=== PATIENT | female | born 1955 | race Caucasian/White ===

== ENCOUNTER 2016-09-10 06:22 | Day surgery (SDC) | payer BC ==
--- NOTE | ~2016-09-10 | EGD ---
EGD REPORT [facility] [address] [address] NAME: KATHY ARIAS : [birth year] STATUS : REG [facility]#: [id number] AGE: 60 ADM/REG DATE : 09/10/16 MR#: [id number] REPORT SERV DATE: 09/10/16 DICTATED BY: DALE PURVIS DATE: 09/10/16 REPORT STATUS : Draft TRANSCRIBED BY: [facility] DATE: 09/10/16 Endoscopy Center Patient Name: Kathy Arias Date of : 1955 Attending MD: DALE PURVIS MD Procedure Date No Time: 09/10/2016 Procedure: Upper GI endoscopy Indications: Gastro-esophageal reflux disease Referring MD: Prema Khalil Medicines: See the Anesthesia note for documentation of the administered medications Complications: No immediate complications. Procedure: Pre-Anesthesia Assessment: - ASA Grade Assessment: III - A patient with severe systemic disease. After obtaining informed consent, the endoscope was passed under direct vision. Throughout the procedure, the patient's blood pressure, pulse, and oxygen saturations were monitored continuously. The GIF H190 [id number] was introduced through the mouth, and advanced to the second part of duodenum. The upper GI endoscopy was accomplished without difficulty. The patient tolerated the procedure well. Findings: The examined duodenum was normal. Mild inflammation was found in the gastric antrum. Biopsies were taken with a cold forceps for histology. The cardia and gastric fundus were normal on retroflexion. A 2 cm hiatus hernia was present. Impression: - Normal examined duodenum. - Gastritis. Biopsied. - Hiatus hernia. Recommendation: - Patient has a contact number available for emergencies. The signs and symptoms of potential delayed complications were discussed with the patient. Return to normal activities tomorrow. Written discharge instructions were provided to the patient. - Regular diet. - Continue present medications. - FOR YOUR BIOPSY RESULTS: Please go to [email or web address] and register to receive your results via the portal. Your biopsy results will be EGD REPORT [address] [address] NAME: KATHY ARIAS : [birth year] STATUS : REG [facility] [place] PAT#: [id number] AGE: 60 ADM/REG DATE : 09/10/16 MR#: [id number] REPORT SERV DATE: 09/10/16 DICTATED BY: DALE PURVIS DATE: 09/10/16 REPORT STATUS : Draft TRANSCRIBED BY: [employer] DATE: 09/10/16 posted there in about 7 to 10 days. IF you do not see result in 10 days, call office. Procedure Code(s): --- Professional --- 57197, Esophagogastroduodenoscopy, flexible, transoral; with biopsy, single or multiple Diagnosis Code(s): --- Professional --- K29.70, Gastritis, unspecified, without bleeding K44.9, Diaphragmatic hernia without obstruction or gangrene K21.9, Gastro-esophageal reflux disease without esophagitis CPT copyright 2013 [employer]. All rights reserved. The codes documented in this report are preliminary and upon elementary science teacher review may be revised to meet current compliance requirements. Dale Purvis MD DALE PURVIS MD 09/10/2016 8:09 AM This report has been signed electronically. Number of Addenda: 0 Note Initiated On: 09/10/2016 7:56 AM Scope Withdrawal Time 0 hours 0 minutes 0 seconds
--- NOTE | ~2016-09-10 | EGD ---
EGD REPORT [facility] [address] [address] NAME: KATHY ARIAS : [birth year] STATUS : REG [facility]#: [id number] AGE: 60 ADM/REG DATE : 09/10/16 MR#: [id number] REPORT SERV DATE: 09/10/16 DICTATED BY: DALE PURVIS DATE: 09/10/16 REPORT STATUS : Draft [facility]ANS[facility]IBED [facility]: [facility] DATE: 09/10/16 Endoscopy Center Patient Name: Kathy Arias Date of : 1955 Attending MD: DALE PURVIS MD Procedure Date No Time: 09/10/2016 Procedure: Colonoscopy Indications: High risk colon cancer surveillance: Personal history of colonic polyps, Last colonoscopy: 2013 Referring MD: Prema Khalil Medicines: See the Anesthesia note for documentation of the administered medications Complications: No immediate complications. Procedure: Pre-Anesthesia Assessment: - ASA Grade Assessment: III - A patient with severe systemic disease. After I obtained informed consent, the scope was passed under direct vision. Throughout the procedure, the patient's blood pressure, pulse, and oxygen saturations were monitored continuously. The PCF [id number] was introduced through the anus and advanced to the terminal ileum, with identification of the appendiceal orifice and IC valve. The colonoscopy was performed without difficulty. The patient tolerated the procedure well. The quality of the bowel preparation was adequate. Findings: The perianal and digital rectal examinations were normal. Diverticula were found in the entire colon. Internal hemorrhoids were found during retroflexion and were small. A sessile polyp was found in the cecum. The polyp was 10 mm in size. The polyp was removed with a hot snare. Resection and retrieval were complete. A sessile polyp was found in the ascending colon. The polyp was small in size. The polyp was removed with a cold biopsy forceps. Resection and retrieval were complete. A sessile polyp was found in the rectum. The polyp was small in size. The polyp was removed with a cold biopsy forceps. Resection and retrieval were complete. Impression: - Diverticulosis in the entire examined colon. - Internal hemorrhoids. - One 10 mm polyp in the cecum. Resected and retrieved. - One small polyp in the ascending colon. Resected and retrieved. EGD REPORT [address] [address] NAME: KATHY ARIAS : [birth year] STATUS : REG [facility]#: [id number] AGE: 60 ADM/REG DATE : 09/10/16 MR#: [id number] REPORT SERV DATE: 09/10/16 DICTATED BY: DALE PURVIS DATE: 09/10/16 REPORT STATUS : Draft TRANSCRIBED BY: [employer] DATE: 09/10/16 - One small polyp in the rectum. Resected and retrieved. Recommendation: - Patient has a contact number available for emergencies. The signs and symptoms of potential delayed complications were discussed with the patient. Return to normal activities tomorrow. Written discharge instructions were provided to the patient. - Regular diet. - Continue present medications. - Repeat colonoscopy in 3 years for surveillance. - FOR YOUR BIOPSY RESULTS: Please go to [email or web address] and register to receive your results via the portal. Your biopsy results will be posted there in about 7 to 10 days. IF you do not see result in 10 days, call office. - Return to my office in 2 months. Procedure Code(s): --- Professional --- 20485, Colonoscopy, flexible, proximal to splenic flexure; with removal of tumor(s), polyp(s), or other lesion(s) by snare technique 61472, 59, Colonoscopy, flexible, proximal to splenic flexure; with biopsy, single or multiple Diagnosis Code(s): --- Professional --- K64.8, Other hemorrhoids K57.30, Diverticulosis of large intestine without perforation or abscess without bleeding K62.1, Rectal polyp D12.2, Benign neoplasm of ascending colon D12.0, Benign neoplasm of cecum Z86.010, Personal history of colonic polyps CPT copyright 2013 [employer]. All rights reserved. The codes documented in this report are preliminary and upon assurance assistant review may be revised to meet current compliance requirements. Dale Purvis MD DALE PURVIS MD 09/10/2016 8:36 AM This report has been signed electronically. Number of Addenda: 0 Note Initiated On: 09/10/2016 8:09 AM EGD REPORT [facility] [address] [address] NAME: KATHY ARIAS : [birth year] STATUS : REG [facility] PAT#: [id number] AGE: 60 ADM/REG DATE : 09/10/16 MR#: [id number] REPORT SERV DATE: 09/10/16 DICTATED BY: DALE PURVIS DATE: 09/10/16 REPORT STATUS : Draft TRANSCRIBED BY: [facility] DATE: 09/10/16 Scope Withdrawal Time 0 hours 17 minutes 23 seconds [address] [id number]
[~2016-09-10 06:22] MED LIST: ASAB PO; CARTIA XT180 MG/24 PO; EFFEX37.5 PO; LEVSINTAB PO; LIPITOR20 PO; MAX25 PO; NORCO1 TA2 PO; NTG150 SL; PREV30 PO; RELA5 PO; VITAMIN D31000 UNIT PO; VITC500 PO; ZANTAC 75 PO
== END 2016-09-10 23:59 | disposition home or self-care (01) ==
LOC: DMU 06:22
PROVIDERS: Internal Medicine Gastroenterology
PROC: 0DB68ZX Excision of Stomach, Via Natural or Artificial Opening Endoscopic, Diagnostic (ICD-10-PCS; 2016-09-10)
PROC: 0DBH8ZZ Excision of Cecum, Via Natural or Artificial Opening Endoscopic (ICD-10-PCS; principal; 2016-09-10 08:00)
PROC: 0DBP8ZZ Excision of Rectum, Via Natural or Artificial Opening Endoscopic (ICD-10-PCS; 2016-09-10 08:00)
PROC: 0DBK8ZZ Excision of Ascending Colon, Via Natural or Artificial Opening Endoscopic (ICD-10-PCS; 2016-09-10 08:00)
DX: Z12.11 Encounter for screening for malignant neoplasm of colon (principal); D12.0 Benign neoplasm of cecum; K63.5 Polyp of colon; K62.1 Rectal polyp; K29.70 Gastritis, unspecified, without bleeding; K44.9 Diaphragmatic hernia without obstruction or gangrene; K21.9 Gastro-esophageal reflux disease without esophagitis; Z86.010 Personal history of colon polyps; Z79.899 Other long term (current) drug therapy; Z79.82 Long term (current) use of aspirin; Z79.891 Long term (current) use of opiate analgesic
CPT/HCPCS: 88305

== ENCOUNTER 2016-09-13 12:23 | Observation (INO) | payer BC ==
--- NOTE | ~2016-09-13 | CN ---
Consultation Report [facility] [address] [place]. [address] NAME: FELA ARIAS : [birth year] STATUS : ADM Pat PAT#: [id number] AGE: 60 ADM/REG DATE : 09/13/16 MR#: [id number] REPORT SERV DATE: 09/13/16 DICTATED BY: HARSHA GONSALES DATE: 09/13/16 REPORT STATUS : Draft TRANSCRIBED BY: MODL DATE: 09/13/16 GI CONSULTATION DATE OF CONSULTATION: 09/13/2016 REFERRING PHYSICIAN: Conrad Morin Jr, MD REASON FOR CONSULTATION: Lower GI bleed. HISTORY OF PRESENT ILLNESS: Ms. Arias is a pleasant 60-year-old lady, who had a colonoscopy by Dr. Gonzales Purvis, on (today is Wednesday), she did fine since her procedure, however, this morning she called me and informed me that she had a huge bloody bowel movement. On talking to her now while in the hospital, she says that was the only bloody bowel movement she has had and no more. The cecal polyp was removed by snare polypectomy. There is no weakness, dizziness, no nausea or vomiting. She does complain of some epigastric discomfort. HOME MEDICATIONS: Vitamin C, aspirin, Lipitor, vitamin D3, Cardizem, hydrocodone, Prevacid, Maxzide, and Effexor. ALLERGIES: NONE. HABITS: She does not smoke or drink. PHYSICAL EXAMINATION: GENERAL: She is a fully alert and oriented lady, in no distress at this point. VITAL SIGNS: With stable vital signs. LUNGS: Reveal good air entry bilaterally. No rales or rhonchi. CVS: Reveals normal S1 and S2. No gallop, rub, or murmur. CANDY DIPPER HAND: Normal. ABDOMEN: Soft, nondistended, and nontender. No mass, guarding, rigidity, or rebound. Liver and spleen are not palpable. Clinically there is no ascites. EXTREMITIES: Without edema. LABORATORY DATA: Labs have all been reviewed and hemoglobin is 11.5, when last checked on 04/27/2016 it was 13.8. White count is 12.8. Her chemistry panel is normal except glucose of 128. IMPRESSION: Most likely post polypectomy bleed. RECOMMENDATIONS: I discussed with the patient. We will prep with GoLYTELY and may need a colonoscopy depending how she does over the night. Consultation Report [facility] [address] [address] NAME: FELA ARIAS : [birth year] STATUS : ADM Pat PAT#: [id number] AGE: 60 ADM/REG DATE : 09/13/16 MR#: [id number] REPORT SERV DATE: 09/13/16 DICTATED BY: HARSHA GONSALES DATE: 09/13/16 REPORT STATUS : Draft TRANSCRIBED BY: CAYLA DATE: 09/13/16 CERTIFIED ACTIVITIES DIRECTOR/CAYLA Juancho Gonsales M.D. / [id number] CC: Conrad Morin Jr, MD Donald Hetzel, M.D.
--- NOTE | ~2016-09-13 | HP ---
History And Physical [address] [place]. [address] NAME: FELA ARIAS : [birth year] STATUS : ADM Pat PAT#: [id number] AGE: 60 ADM/REG DATE : 09/13/16 MR#: [id number] REPORT SERV DATE: 09/13/16 DICTATED BY: SERA CHENG DATE: 09/13/16 REPORT STATUS : Draft TRANSCRIBED BY: MODL DATE: 09/13/16 DATE OF ADMISSION: 09/13/2016 CHIEF COMPLAINT: Bleeding this morning. HISTORY OF PRESENT ILLNESS: This is a 60-year-old, female patient who gets every three years colonoscopy due to polyps. Had a colonoscopy last , two days ago. This morning, she started having bright-red bleeding about a cup size of amount. Therefore, the patient came to the hospital to get further evaluation. After the initial evaluation, she was found to have post polypectomy bleeding and admission was advised. She does not have any syncope or palpitation. No chest pain. Not short of breath. She is eating and ambulating without any problems. Bleeding has not come back yet. However, she complains about acute on chronic epigastric tenderness. She said she has had this kind of tenderness all the time for a long time. All other health status has been very stable. There is no new admission, hospitalization, surgeries, or any acute illness. REVIEW OF SYSTEMS: All systems reviewed and negative. PAST MEDICAL HISTORY: 1. Hypertension. 2. Depression. PAST SURGICAL HISTORY: 1. Hysterectomy. 2. Cholecystectomy. 3. Neck fusion. ALLERGIES: NO KNOWN DRUG ALLERGIES. SOCIAL HISTORY: Quit smoking in 2001, but used to smoke one pack a day for 13 years. Occasional drinking. Does not work. She lives with her and daughter. MEDICATIONS: 1. Vitamin C once a day. 2. Aspirin 81 mg once a day, but she has not taken aspirin for two weeks due to the procedure. 3. Lipitor 10 mg once at nighttime. 4. Vitamin D3 once a day. 5. Diltiazem CD 360 mg once a day. 6. Argenta 7.5/325 half a tablet twice a day as needed. 7. Prevacid 30 mg twice a day. History And Physical [address] [place]. [address] NAME: FELA ARIAS : [birth year] STATUS : ADM Pat PAT#: [id number] AGE: 60 ADM/REG DATE : 09/13/16 MR#: [id number] REPORT SERV DATE: 09/13/16 DICTATED BY: SERA CHENG DATE: 09/13/16 REPORT STATUS : Draft TRANSCRIBED BY: MODL DATE: 09/13/16 8. Maxzide hydrochlorothiazide 37.5/25 once a day. 9. Effexor 37.5 mg twice a day. FAMILY HISTORY: Patient's family has polyps. PHYSICAL EXAMINATION: VITAL SIGNS: Blood pressure is 165/83, pulse is 79, temperature 98.6, O2 sat is 97% on room air, respiratory rate 18. GENERAL APPEARANCE: She is alert, awake, not in acute distress. HEENT: Conjunctivae not anemic. NECK: There is no jugular venous distention. No nodes palpable. No carotid audible bruits. CHEST: Clear to auscultation bilaterally. Has no respiratory distress or rhonchi. CARDIOVASCULAR: Regular rhythm and rate. Not having any murmur, rub, or gallop. ABDOMEN: Bowel sounds are present. Soft. There is no rebound tenderness. No organomegaly appreciated. There is a slight tenderness in epigastric area. EXTREMITIES: There is no pedal edema. Pulses are intact. LABORATORY: Showed a sodium 139, potassium 4.1, BUN 13, creatinine 0.72. WBC of 12.8, hemoglobin 11.5, hematocrit is 33.9, platelets 257. Chest x-ray of the abdomen was not showing any acute abnormalities. Electrocardiogram showed normal sinus rhythm. ASSESSMENT/PLAN: 1. Post polypectomy bleed. 2. Hypertension, stable. 3. Depression, stable. 4. Patient will be admitted to the hospital observation status. We will do contact to Dr. Purvis and associate. She may need a repeat colonoscopy. We will watch for her bleeding and blood count. EKL/MODL Sera Cheng M.D. / [id number] CC: Conrad Morin Jr, MD Mary L. McKenzie, DO
--- NOTE | ~2016-09-13 | EGD ---
EGD REPORT [facility] [address] [address] NAME: KATHY ARIAS : 59 STATUS : ADM Pat PAT#: [id number] AGE: 60 ADM/REG DATE : 09/13/16 MR#: [id number] REPORT SERV DATE: 09/14/16 DICTATED BY: CONRAD LOMELI DATE: 09/14/16 REPORT STATUS : Draft TRANSCRIBED BY: [facility] DATE: 09/14/16 Endoscopy Center Patient Name: Kathy Arias Date of : 1955 Attending MD: CONRAD LOMELI MD Procedure Date No Time: 09/14/2016 Procedure: Colonoscopy Indications: Hematochezia Referring MD: DALE GOODEN MD, Prema Khalil Medicines: Monitored Anesthesia Care Complications: No immediate complications. Estimated blood loss: Minimal. Procedure: After I obtained informed consent, the scope was passed under direct vision. Throughout the procedure, the patient's blood pressure, pulse, and oxygen saturations were monitored continuously. The CF [id number] was introduced through the anus and advanced to the cecum, identified by appendiceal orifice and ileocecal valve. The colonoscopy was performed without difficulty. The patient tolerated the procedure well. The quality of the bowel preparation was good. Findings: The perianal and digital rectal examinations were normal. Pertinent negatives include no palpable rectal lesions. A single (solitary) ten mm ulcer was found in the cecum. No bleeding was present. Stigmata of recent bleeding were present. One hemostatic clip was successfully placed. There was no bleeding during, and at the end, of the procedure. Estimated blood loss was minimal. A single (solitary) six mm ulcer was found in the ascending colon. No bleeding was present. No stigmata of recent bleeding were seen. A single (solitary) four mm ulcer was found in the proximal rectum. No bleeding was present. No stigmata of recent bleeding were seen. Many medium-mouthed diverticula were found in the sigmoid colon. The exam was otherwise without abnormality. Impression: - A single (solitary) ulcer in the cecum. Clip was placed. - A single (solitary) ulcer in the ascending colon. - A single (solitary) ulcer in the proximal rectum. - Diverticulosis in the sigmoid colon. - The examination was otherwise normal. Recommendation: - Discharge patient to home (ambulatory). - Full liquid diet today. EGD REPORT [address] [address] NAME: KATHY ARIAS : [birth year] STATUS : ADM Pat PAT#: [id number] AGE: 60 ADM/REG DATE : 09/13/16 MR#: [id number] REPORT SERV DATE: 09/14/16 DICTATED BY: CONRAD LOMELI DATE: 09/14/16 REPORT STATUS : Draft TRANSCRIBED BY: [employer] DATE: 09/14/16 - Return to GI clinic PRN. Procedure Code(s): --- Professional --- 83108, Colonoscopy, flexible, proximal to splenic flexure; with control of bleeding (eg, injection, bipolar cautery, unipolar cautery, laser, heater probe, stapler, plasma lead based paint technician) Diagnosis Code(s): --- Professional --- K63.3, Ulcer of intestine K62.6, Ulcer of anus and rectum K57.30, Diverticulosis of large intestine without perforation or abscess without bleeding K92.1, Melena CPT copyright 2013 [employer]. All rights reserved. The codes documented in this report are preliminary and upon quoter review may be revised to meet current compliance requirements. Conrad Lomeli MD CONRAD LOMELI MD 09/14/2016 11:35 AM This report has been signed electronically. Number of Addenda: 0 Note Initiated On: 09/14/2016 10:47 AM Scope Withdrawal Time 0 hours 8 minutes 23 seconds [id number] [id number]
--- NOTE | ~2016-09-13 | DS ---
Discharge Summary [place] [id number] [facility] [place]. [id number] NAME: FELA ARIAS : 59 STATUS : DIS Pat PAT#: [id number] AGE: 60 ADM/REG DATE : 09/13/16 MR#: [id number] REPORT SERV DATE: 09/15/16 DICTATED BY: SERA CHENG DATE: 09/14/16 REPORT STATUS : Draft TRANSCRIBED BY: MODL DATE: 09/14/16 ADMISSION DATE: 09/13/2016 DISCHARGE DATE: 09/14/2016 DISCHARGE DIAGNOSES: 1. Postpolypectomy bleed, stabilized, improved, status post colonoscopy showed ulcer in the cecum, which was clipped and ascending colon, and rectum, and also diverticulosis without bleeding. 2. Hypertension, stable. CONSULTANTS: Dr. Hayden. HISTORY OF PRESENT ILLNESS: This is a 60-year-old female patient, who came to the hospital with a postpolypectomy bleed. Please see dictated H and P. HOSPITAL COURSE: She was admitted to hospital for 24-hour observation, seen by Dr. Gonsales, and decided to repeat a colonoscopy. Had a colonoscopy this morning. Had one clipped treatment and improved and stabilized. Did not drop any blood count, did not require any transfusion. Remained in stable condition. Maximized hospital care. Will be discharged home with current home medications. DISCHARGE MEDICATIONS: Same as home medication. EKL/MODL Sera Cheng M.D. / [id number] CC: Leonel Barnes DO
[2016-09-13 12:50] LABS: BASOPHILS 0.5 %; BASOPHILS ABSOLUTE 0.06 10/3/uL (0.0-0.16); EOSINOPHILS 0.9 %; EOSINOPHILS ABSOLUTE 0.11 10/3/uL (0.0-0.53); HEMOGLOBIN 11.5 g/dL (12.0-16.0); IMMATURE GRANULOCYTES 0.3 %; IMMATURE GRANULOCYTES ABSOLUTE 0.04 10/3/uL (0.0-0.11); LYMPHOCYTES 10.9 %; LYMPHOCYTES ABSOLUTE 1.39 10/3/uL (0.67-4.30); MEAN CORPUS HGB CONC 33.9 g/dL (32.0-36.0); MEAN CORPUSCULAR HEMOGLOB 28.2 pg (26.0-34.0); MEAN CORPUSCULAR VOLUME 83.1 fL (80-100); MEAN PLATELET VOLUME 10.4 fL (9.2-13.0); MONOCYTES 8.5 %; MONOCYTES ABSOLUTE 1.08 10/3/uL (0.21-1.20); NEUTROPHILS 78.9 %; NEUTROPHILS ABSOLUTE 10.07 10/3/uL (2.02-8.40); PLATELET COUNT 257 10/3/uL (150-400); RED CELL COUNT 4.08 10/6/uL (4.0-5.6); WHITE BLOOD CELLS 12.8 10/3/uL (4.5-10.5)
[2016-09-13 12:52] LABS: HEMATOCRIT 33.9 % (36.0-48.0); MANUAL DIFF NO %
[2016-09-13 13:08] LABS: A/G RATIO 1.1 (0.7-1.9); ALBUMIN 3.6 G/DL (3.5-5.0); ALKALINE PHOSPHATASE 56 U/L (45-117); BUN (BLOOD UREA NITROGEN) 13 MG/DL (6-23); CALCIUM, SERUM 8.8 MG/DL (8.5-10.4); CHLORIDE, SERUM 103 MMOL/L (96-112); CO2 (CARBON DIOXIDE) 25 MMOL/L (24-34); CREATININE 0.73 MG/DL (0.55-1.02); GFR AFRICAN AMERICAN 105 ML/MIN (>=60); GFR NON AFRICAN AMERICAN 91 ML/MIN (>=60); GLUCOSE, SERUM 128 MG/DL (60-99); INTERNATIONAL NORMAL RATI 0.9 UNITS (-); PARTIAL THROMBO TIME 28.4 SEC (22.5-37.2); POTASSIUM, SERUM 4.1 MMOL/L (3.5-5.3); PROTIME (NOT ORD) 12.5 SEC (12.0-14.5); SGOT(AST) 8 U/L (5-40); SGPT(ALT) 26 U/L (5-65); SODIUM, SERUM 139 MMOL/L (135-148); TOTAL BILIRUBIN 0.3 MG/DL (0-1.2); TOTAL PROTEIN 6.9 G/DL (6.0-8.5)
[2016-09-13 13:09] LABS: GLOBULIN 3.3 G/DL (2.5-4.1)
[2016-09-13] MEDS ORDERED: MAX25 PO (14:03)
[2016-09-13] MEDS ORDERED: CARDCD360 PO (14:03)
[2016-09-13] MEDS ORDERED: PREV30 PO (14:03)
[2016-09-13] MEDS ORDERED: NORCO1 TA2 PO (14:04)
[2016-09-13] MEDS ORDERED: LIPITOR10 PO (14:04)
[2016-09-13] MEDS ORDERED: EFFEX37.5 PO (14:04)
[2016-09-13] MEDS ORDERED: VITC500 PO (14:05)
[2016-09-13] MEDS ORDERED: HALF81 PO (14:05)
[2016-09-13] MEDS ORDERED: VITAMIN D31000 UNIT PO (14:05)
[2016-09-13 23:36] LABS: HEMATOCRIT 31.5 % (36.0-48.0); HEMOGLOBIN 10.9 g/dL (12.0-16.0)
[2016-09-14 04:02] LABS: BASOPHILS 0.7 %; BASOPHILS ABSOLUTE 0.06 10/3/uL (0.0-0.16); EOSINOPHILS 2.9 %; EOSINOPHILS ABSOLUTE 0.26 10/3/uL (0.0-0.53); HEMOGLOBIN 10.9 g/dL (12.0-16.0); IMMATURE GRANULOCYTES 0.3 %; IMMATURE GRANULOCYTES ABSOLUTE 0.03 10/3/uL (0.0-0.11); LYMPHOCYTES 28.6 %; LYMPHOCYTES ABSOLUTE 2.58 10/3/uL (0.67-4.30); MEAN CORPUS HGB CONC 34.1 g/dL (32.0-36.0); MEAN CORPUSCULAR HEMOGLOB 28.4 pg (26.0-34.0); MEAN CORPUSCULAR VOLUME 83.3 fL (80-100); MEAN PLATELET VOLUME 10.7 fL (9.2-13.0); MONOCYTES 8.4 %; MONOCYTES ABSOLUTE 0.76 10/3/uL (0.21-1.20); NEUTROPHILS 59.1 %; NEUTROPHILS ABSOLUTE 5.34 10/3/uL (2.02-8.40); PLATELET COUNT 269 10/3/uL (150-400); RBC DISTRIBUTION WIDTH 12.8 % (12.0-16.0); RED CELL COUNT 3.84 10/6/uL (4.0-5.6)
[2016-09-14 04:03] LABS: MANUAL DIFF NO %
[2016-09-14 04:08] LABS: PROTIME (NOT ORD) 13.2 SEC (12.0-14.5)
[2016-09-14 04:13] LABS: CALCIUM, SERUM 8.3 MG/DL (8.5-10.4); CHLORIDE, SERUM 108 MMOL/L (96-112); CO2 (CARBON DIOXIDE) 27 MMOL/L (24-34); CREATININE 0.67 MG/DL (0.55-1.02); GFR AFRICAN AMERICAN 112 ML/MIN (>=60); GFR NON AFRICAN AMERICAN 97 ML/MIN (>=60); POTASSIUM, SERUM 3.5 MMOL/L (3.5-5.3); SODIUM, SERUM 144 MMOL/L (135-148)
[2016-09-14 04:14] LABS: BUN (BLOOD UREA NITROGEN) 8 MG/DL (6-23); GLUCOSE, SERUM 93 MG/DL (60-99)
[2016-09-14 07:24] LABS: HEMATOCRIT 32.4 % (36.0-48.0)
[2016-09-14 13:08] LABS: HEMATOCRIT 34.3 % (36.0-48.0); HEMOGLOBIN 11.9 g/dL (12.0-16.0)
== END 2016-09-14 15:47 | disposition home or self-care (01) ==
LOC: ER 12:23 → CDU1 15:02
PROVIDERS: Emergency Medicine; Internal Medicine; Internal Medicine Gastroenterology
PROC: 0W3P8ZZ Control Bleeding in Gastrointestinal Tract, Via Natural or Artificial Opening Endoscopic (ICD-10-PCS; principal; 2016-09-14 11:05)
DX: K63.3 Ulcer of intestine (principal); K62.6 Ulcer of anus and rectum; K57.30 Diverticulosis of large intestine without perforation or abscess without bleeding; I10 Essential (primary) hypertension; G47.33 Obstructive sleep apnea (adult) (pediatric); F32.9 Major depressive disorder, single episode, unspecified; Z90.49 Acquired absence of other specified parts of digestive tract; Z90.710 Acquired absence of both cervix and uterus; Z98.890 Other specified postprocedural states; Z87.891 Personal history of nicotine dependence; Z79.82 Long term (current) use of aspirin; Z79.899 Other long term (current) drug therapy
CPT/HCPCS: 36415; 36430; 74022; 80048; 80053; 85014; 85018; 85025; 85610; 85730; 86850; 86900; 86901; 86920; 93005; 96374; 99284; A9270-GY; G0378; J2405